=== PATIENT | male | born 1970 | race Caucasian/White ===

== ENCOUNTER 2016-06-18 09:32 | Emergency (ER) | payer SELFPAY ==
[~2016-06-18] VITALS: Ht 180.3 cm; Wt 110.0 kg
[~2016-06-18 09:32] MED LIST: CEFT500T3 PO; ZITHTAB PO
[2016-06-18 09:34] VITALS: BP 144/88; PULSE 97; RESP 20; TEMP 97.9; O2SAT 96
[2016-06-18] MEDS ORDERED: PRED20 PO (11:19)
--- NOTE | 2016-06-18 11:26 | PD ---
HPI Chief Complaint: Edema Time Seen by Provider: 10:56 Travel History International Travel<30 days: No Contact w/Intl Traveler<30days: No Traveled to known affect area: No History of Present Illness HPI This patient complains of swelling and itching and rash in both hands. Started this morning. Duration 3 hours. Severity is moderate. He says he's had this happen once before and it resolves spontaneously but this episode seems worse. No fever. No medical history PFSH Past Medical History Medical History: Denies Significant Hx Tetanus Vaccination: < 5 Years Past Surgical History Surgical History: No Previous Surgery Social History Alcohol Use: Yes Tobacco Use: Yes Substance Use: No Allergies-Medications (Allergen,Severity, Reaction): Coded Allergies: No Known Allergies (Unverified , 06/18/16) Reported Meds & Prescriptions Reported Meds & Active Scripts Active Review of Systems General / Constitutional: No: Fever HENT: No: Headaches Cardiovascular: No: Chest Pain or Discomfort Physical Exam Narrative NECK: Symmetrical appearance, midline trachea. No mass or crepitus. Thyroid without enlargement, tenderness, or mass. SKIN: Inspection shows no ulcers. Palpation shows no induration or nodules. Has macular erythema both hands and a small patch on the left arm RESPIRATORY: Respiratory effort unlabored, no retractions or use of accessory muscles. Breath sounds are clear and symmetric. Data Data Last Documented VS Vital Signs Date Time Temp Pulse Resp B/P Pulse Ox O2 Delivery O2 Flow Rate FiO2 06/18/16 09:34 97.9 97 20 144/88 96 Room Air Orders Prednisone (Deltasone) (06/18/16 11:30) MDM Medical Decision Making Medical Screen Exam Complete: Yes Emergency Medical Condition: Yes Medical Record Reviewed: Yes Differential Diagnosis Allergic reaction, connective tissue disease, eczema Narrative Course I have reviewed the patient's electronic medical record. Gave him a dose of 100 mg prednisone here with a 5 day prescription for the same. He will use Benadryl as needed. This may be allergic reaction related. Follow-up with primary care Diagnosis Primary Impression: Bilateral hand swelling Additional Instructions: The patient was advised to follow up with their physician and return if they worsen. Use Benadryl every 6 hours as needed Med/Other Pt SpecificInfo: Prescription(s) given Scripts Prednisone 20 Mg Tab40 Mg PO DAILY #10 TAB Ref 0 Take 40 mg (2 tablets) daily for 5 days Prov:Baldemar Manning MD 06/18/16 Disposition: 01 DISCHARGE HOME Condition: Stable Baldemar Manning MD Jun 18, 2016 11:26
[2016-06-18] MEDS ORDERED: predniSONE 20 MG TAB PO ONE (11:30)
== END 2016-06-18 11:53 | disposition home or self-care (01) ==
LOC: NEPD 09:32
DX: R22.33 Localized swelling, mass and lump, upper limb, bilateral (principal); L29.9 Pruritus, unspecified; R21 Rash and other nonspecific skin eruption; Z72.0 Tobacco use
CPT/HCPCS: 99284; J7512